=== PATIENT | male | born 1975 | race Two or more races ===

== ENCOUNTER → 2018-03-24 08:14 | Outpatient (CLI) | payer OTHER ==
[~2018-03-24 08:14] MED LIST: CELEBREX100 MG PO; MEDROL4 MG PO; SKELAXIN800 MG PO; TIZANIDINE HCL2 MG PO; VISTARIL50 MG PO
== END | disposition home or self-care (01) ==
LOC: LAB 08:14
DX: I11.9 Hypertensive heart disease without heart failure (principal); E03.8 Other specified hypothyroidism; E11.9 Type 2 diabetes mellitus without complications; N39.0 Urinary tract infection, site not specified; E78.2 Mixed hyperlipidemia

== ENCOUNTER → 2018-05-27 08:38 | Outpatient (CLI) | payer OTHER | END | disposition home or self-care (01) | LOC: LAB 08:38 | DX: E78.2 Mixed hyperlipidemia (principal) ==